=== PATIENT | male | born 2000 | race Caucasian/White ===

== ENCOUNTER 2018-09-15 21:11 | Emergency (ER) | payer BC ==
[2018-09-15 21:24] VITALS: BP 123/58
[2018-09-15] MEDS ORDERED: CEPHALEXIN 500 MG CAP PO ONE (21:47)
[2018-09-15] MEDS ORDERED: CEPHALEXIN 500MG PREPACK#4 BTL TAKEHOME ONE (21:47)
--- NOTE | 2018-09-15 21:48 | EDPHY ---
H & P Time Seen by Provider: 09/15/18 21:27 HPI/ROS: Chief complaint: New tattoo on left leg, possibly infected History of present illness: This is a 18-year-old male who presents to the emergency department concerned a new tattoo on his right leg is become infected. He got the tattoo 2 weeks ago. He states he used a reputable, licensed vendor. He states the 1st week was doing fine. However, he is now getting erythema and edema to the site. He has felt somewhat feverish. He denies other associated signs or symptoms include abnormal coolness or paresthesias in the leg. No cold symptoms. His tetanus is up-to-date. Smoking Status: Never smoked Physical Exam: General: Alert, nontoxic. Skin: Patient has a tattoo to the medial surface of his right lower leg. There is mild surrounding erythema and edema. No pustular discharge. No red streaking up the leg. Musculoskeletal: He is moving the right lower extremity without difficulty. Vascular: DP and PT pulses 2+. Neurologic: Sensation intact in the right leg. Constitutional: Initial Vital Signs Temperature (C) 36.4 C 09/15/18 21:22 Heart Rate 89 09/15/18 21:22 Respiratory Rate 16 09/15/18 21:22 Blood Pressure 123/58 H 09/15/18 21:22 O2 Sat (%) 100 09/15/18 21:22 O2 Delivery Mode Room Air Allergies/Adverse Reactions: iodine Allergy (Verified 09/15/18 21:20) Home Medications: Medication Instructions Recorded Cephalexin [Keflex (*)] 500 mg PO TID #21 cap 09/15/18 MDM/Departure - MDM ED Course/Re-evaluation: Patient seen under the supervision of my secondary supervising physician Dr. Devan Juan. Patient presents with increasing redness and discomfort at the site of a tattoo placed 2 weeks ago. He is nontoxic. His leg is neurovascularly intact. I am concerned for a developing skin infection. He will be placed on Keflex. Home care is discussed. He is to follow up with a primary care doctor for recheck. Return precautions are given. The patient voiced understanding and agreement with plan. Differential Diagnosis: Dermatitis secondary to recent tattoo placement, cellulitis, doubtful abscess, lymphangitis - Depart Disposition: Home, Routine, Self-Care Clinical Impression: Cellulitis Qualifiers: Site of cellulitis: extremity Site of cellulitis of extremity: lower extremity Laterality: right Qualified Code(s): L03.115 - Cellulitis of right lower limb Condition: Good Instructions: Cellulitis (ED) Additional Instructions: Follow-up with her primary care doctor this week for recheck If symptoms worsen or new symptoms develop return to the emergency room for recheck Prescriptions: Cephalexin [Keflex (*)] 500 mg PO TID #21 cap Referrals: [facility],. [Clinic] - As per Instructions
== END 2018-09-15 22:05 | disposition home or self-care (01) ==
DX: L03.115 Cellulitis of right lower limb (principal); L81.8 Other specified disorders of pigmentation